=== PATIENT | female | born 1970 ===

== ENCOUNTER 2019-03-10 13:39 | Day surgery (SDC) | payer MEDICAID ==
[2019-03-10 14:36] VITALS: BMI 34.2
[2019-03-10] MEDS ORDERED: Lactated Ringer's 1,000 ML IV ONE (14:53)
[2019-03-10 15:07] LABS: BASO % 0.3 % (0.0-2.0); EOS % 0.7 % (0.0-4.0); HEMOGLOBIN 13.8 g/dL (12.0-16.0); LYMPH # 1.7 K/uL (1.0-4.3); LYMPH % 28.8 % (20.0-40.0); MEAN CELL VOLUME 94.5 fl (81.0-99.0); MEAN CORPUSCULAR HEMOGLOBIN 31.6 pg (27.0-31.0); MEAN CORPUSCULAR HGB CONC 33.4 g/dL (33.0-37.0); MONO # 0.4 K/uL (0.0-0.8); MONO % 6.3 % (0.0-10.0); NEUT # 3.7 K/uL (1.8-7.0); NEUT % 63.9 % (50.0-75.0); RBC 4.35 Mil/uL (3.80-5.20); RED CELL DISTRIBUTION WIDTH 14.2 % (11.5-14.5); WHITE BLOOD COUNT 5.8 K/uL (4.8-10.8)
[2019-03-10] MEDS ORDERED: Oxytocin 10 Units/ml Inj ONE (15:23)
[2019-03-10] MEDS ORDERED: cefOXitin IV 1 gm in Dextrose 0 GM/0 ML BAG IVPB ONE (15:23)
[2019-03-10] MEDS ORDERED: Oxycodone/Acetaminophen 5/325 mg Tab PO ONE (16:48)
--- NOTE | 2019-03-10 16:51 | CP.SDSHP ---
Same Day Surgery H & P - Allergies Allergies: Allergies No Known Allergies Allergy (Verified 03/10/19 14:52) - Physical Exam Vital Signs: Vital Signs 03/10/19 14:49 Temperature 98.3 F Pulse Rate 68 Respiratory 13 Rate Blood Pressure 135/79 O2 Sat by Pulse 98 Oximetry Short Stay Discharge - Short Stay Discharge Admitting Diagnosis/Reason for Visit: MOLAR Progress Note/Discharge Note with Instructions: The patient here for molar we discussed appropriate management we discussed appropriate follow-up patient aware she needs beta quant's monthly for 1 year. Patient was counseled regarding the propensity to behave like cancer and become metastatic. The patient was given the opportunity to ask questions. The patient was informed she should not get for 1 year. All her questions were answered and patient agreed to plan of care
[2019-03-10] MEDS ORDERED: HYDROmorphone 0.5 mg/0.5 ml ISec IVP PRN (17:01)
[2019-03-10 17:02] VITALS: RESP 18
[2019-03-10] MEDS ORDERED: Lactated Ringer's 1,000 ML IV SCH (17:15)
[2019-03-10 18:41] VITALS: BP 132/78; PULSE 75; TEMP 98.2; O2SAT 100
--- NOTE | 2019-03-11 03:40 | OP ---
PROCEDURE DATE: 03/10/2019 PREOPERATIVE DIAGNOSIS: Molar , 11 weeks gestation. POSTOPERATIVE DIAGNOSIS: Molar , 11 weeks gestation. OPERATION PERFORMED: Suction D and C. SURGEON: Araceli Ly MD. ANESTHESIA: General. ANESTHESIA ADMINISTERED BY: Luis Fernando Jonas MD ESTIMATED BLOOD LOSS: 75 mL. The patient was straight catheterized prior to starting the procedure. OPERATIVE FINDINGS: Normal external female genitalia. Urethra normal. Cervix smooth. Uterus anteverted, approximately 11 weeks size. DESCRIPTION OF PROCEDURE: After informed consent was obtained, the patient was brought to the operating room. She was given Methergine. She was then prepped and draped in a normal sterile fashion. Weighted speculum was inserted into the vagina. The cervix was visualized and grasped with a single-tooth tenaculum. The cervix was then gently dilated. A #10 curved suction curette was inserted into the uterine cavity, activated and rotated in a clockwise fashion. A sharp curettage was then performed until a gritty texture was noted. The suction device was then inserted back into the uterine cavity and rotated in a clockwise fashion to remove any remaining debris. All suction device was then removed from the cervix. The tenaculum site was inspected and noted to be hemostatic. Procedure was terminated, and the patient was taken to recovery room in awake and stable condition. Araceli Ly MD
== END 2019-03-10 19:00 | disposition home or self-care (01) ==
LOC: H.OPSURG 13:39
PROVIDERS: ATTEND Obstetrics & Gynecology Gynecology
DX: O02.0 Blighted ovum and nonhydatidiform mole (principal); Z3A.11 11 weeks gestation of pregnancy
CPT/HCPCS: 36415; 59820; 85025; 86850; 86900; 86920; 88305; J1100; J2001; J2210; J2250; J2405; J2704; J2765; J3010; J7030; J7120